=== PATIENT | female | born 1985 | race African-American/Black ===

== ENCOUNTER 2017-05-10 00:46 | Emergency (ER) | payer MEDICAID, SELFPAY ==
[2017-05-10 01:23] LABS: Bilirubin Negative (Negative); Blood, Urine Negative (Negative); Clarity CLOUDY (Clear); Glucose, Urine (Dipstick) Negative (Negative); Leukocyte Moderate (Negative); Nitrite Negative (Negative); Protein, Urine (Dipstick) Negative (Neg-Trace); Specific Gravity, Urine 1.026 (1.002-1.036)
[2017-05-10 01:24] LABS: Bacteria/HPF 2+ HPF (None Seen); Hyaline Casts/LPF 0-3 HYALINE CAST LPF (0-3 Hyaline); Pathc Cast-AUWi Flag 0.81 (0-2.49); RBC/HPF 0-3 HPF (0-3); Squamous Epithelial 0-3 HPF (0-3); WBC/HPF 21-50 HPF (0-3)
[2017-05-10 01:26] LABS: Pregnancy Test - Urine (BHCG) POSITIVE (Negative); Pregu Control Background? CLEAR/WHITE (CLR/WHITE); Pregu Control Bar Appear? YES (CONTROL BAR); Specific Gravity 1.026 (1.002-1.036); Yeast-AUWi Flag 784.1 (0-25.0)
[2017-05-10 01:35] LABS: Crystals/HPF 1+ AMORPH URATES HPF (Negative); Yeast-All Forms None Seen HPF (None Seen)
== END 2017-05-10 02:30 | disposition home or self-care (01) ==
LOC: ERS 00:46
DX: O99.711 Diseases of the skin and subcutaneous tissue complicating pregnancy, first trimester (principal); L73.9 Follicular disorder, unspecified; O23.41 Unspecified infection of urinary tract in pregnancy, first trimester; O99.341 Other mental disorders complicating pregnancy, first trimester; F31.9 Bipolar disorder, unspecified; F41.9 Anxiety disorder, unspecified; Z71.6 Tobacco abuse counseling; F17.210 Nicotine dependence, cigarettes, uncomplicated
CPT/HCPCS: 81003; 81015; 81025; 99406

== ENCOUNTER 2017-08-23 02:03 | Emergency (ER) | payer MEDICAID, OTHER ==
[2017-08-23] MEDS ORDERED: Acetaminophen 500 MG TAB ONE (03:54)
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
== END 2017-08-23 05:41 | disposition home or self-care (01) ==
LOC: ERS 02:03
DX: O9A.212 Injury, poisoning and certain other consequences of external causes complicating pregnancy, second trimester (principal); S09.90XA Unspecified injury of head, initial encounter; S00.12XA Contusion of left eyelid and periocular area, initial encounter; O99.512 Diseases of the respiratory system complicating pregnancy, second trimester; J45.909 Unspecified asthma, uncomplicated; D64.9 Anemia, unspecified; O99.282 Endocrine, nutritional and metabolic diseases complicating pregnancy, second trimester; E03.9 Hypothyroidism, unspecified; O99.342 Other mental disorders complicating pregnancy, second trimester; F41.9 Anxiety disorder, unspecified; F31.9 Bipolar disorder, unspecified; F20.9 Schizophrenia, unspecified; Z79.899 Other long term (current) drug therapy; Y04.0XXA Assault by unarmed brawl or fight, initial encounter; Z3A.20 20 weeks gestation of pregnancy
CPT/HCPCS: 70450; 71046; 72125

== ENCOUNTER 2017-11-26 16:16 | Day surgery (SDC) | payer OTHER ==
[2017-11-26 17:00] VITALS: BP 116/66; TEMP 98.9; BMI 33.6
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
[2017-11-26 18:30] LABS: Bilirubin Negative (Negative); Blood, Urine Negative (Negative); Clarity CLOUDY (Clear); Glucose, Urine (Dipstick) Negative (Negative); Leukocyte Moderate (Negative); Nitrite Negative (Negative); Protein, Urine (Dipstick) Negative (Neg-Trace); Specific Gravity, Urine 1.006 (1.002-1.036); pH, Urine 6.5 (5.0-9.0)
[2017-11-26 18:39] LABS: #Eosinphils 0.3 thou/uL (0.0-0.7); #Lymphocytes 1.1 thou/uL (1.20-3.40); #Monocytes 1.2 thou/uL (0.11-0.59); #Neutrophils 16.1 thou/uL (1.40-6.50); %Eosinophils 1.7 % (0.0-10.0); %Lymphocytes 5.9 % (21.0-51.0); %Monocytes 6.4 % (0.0-10.0); Hemoglobin 11.8 g/dL (12.0-16.0); Mean Corpuscular Hemoglobin 29.2 pg (27.0-31.0); Mean Corpuscular Volume 88.2 fL (78.0-98.0); Mean Platelet Volume 7.6 fL (7.4-10.4); Platelet Count 169 thou/uL (130-400); RBC Distribution Width 12.2 % (11.5-14.5); Red Blood Cell (RBC) Count 4.04 mill/uL (4.20-5.40); White Blood Cell (WBC) Count 18.7 thou/uL (4.8-10.8)
[2017-11-26 18:40] LABS: Medtox Reader # READER 4
[2017-11-26 18:41] LABS: Amphetamine Not Detected (NotDetected); Barbiturates Screen Not Detected (NotDetected); Benzodiazepine Screen Not Detected (NotDetected); Cocaine Metabolite Screen Not Detected (NotDetected); Medtox Control Line Valid? VALID (VALID); Methadone Not Detected (NotDetected); Methamphetamine Not Detected (NotDetected); Opiate Screen Not Detected (NotDetected); Oxycodone Screen Not Detected (NotDetected); Phencyclidine (PCP) Detected (NotDetected); THC/Cannabinoid Screen Not Detected (NotDetected); Tricyclic Screen Not Detected (NotDetected)
[2017-11-26] MEDS ORDERED: Lactated Ringer's 1,000 ML IV SCH (18:45)
[2017-11-26 18:56] LABS: ALT (SGPT) 17 U/L (8-55); AST (SGOT) 18 U/L (5-34); Albumin 3.1 g/dL (3.5-5.0); Alkaline Phosphatase 125 U/L (40-150); Anion Gap 12 mmol/L (10-20); BUN (Urea Nitrogen) 6 mg/dL (7.0-18.7); Bilirubin, Total 0.3 mg/dL (0.2-1.2); Calc. Creatinine Clearance 178 mL/min (70-130); Calcium 8.8 mg/dL (7.8-10.44); Carbon Dioxide 20 mmol/L (22-29); Chloride 107 mmol/L (98-107); Estimated GFR-MDRD Greater than 90; Globulin 2.9 g/dL (2.4-3.5); Glucose 87 mg/dL (70-105); Potassium 3.6 mmol/L (3.5-5.1); Sodium 135 mmol/L (136-145)
--- NOTE | 2017-11-26 19:43 | PDOC.EVN ---
Event Note - Event Note Event Note: Spoke with pt regarding low TSH and need to stop taking the synthroid. Pt thinks since TSH was low she needs the synthroid, it was explained in detail that she does not need to take synthroid and it was recommended she stop taking the medication for the remaining duration of this . PNC aware of issue and is monitoring. Pt agreeable to plan.
--- NOTE | 2017-11-26 20:13 | ULT ---
BIOPHYSICAL PROFILE: 11/26/17 HISTORY: 32-year-old female with decreased movement and limited care TECHNIQUE: Limited sonographic assessment of the gravid uterus obtained. FINDINGS: Single intrauterine gestation present with a vertex presentation. Placenta is located anteriorly with no evidence for previa or abruption. heart rate is 139 beats per minute, within normal limits. Amniotic fluid index is 9.7 cm. The linoleum floor layer reports a 2 out 2 score for tone, breathi ng, movement and amniotic fluid. IMPRESSION: Normal 8 out of 8 biophysical profile score. POS: [facility]
== END 2017-11-26 19:53 | disposition home or self-care (01) ==
LOC: L&D/OP 16:16
PROVIDERS: ATTEND Obstetrics & Gynecology
DX: O36.5930 Maternal care for other known or suspected poor fetal growth, third trimester, not applicable or unspecified (principal); O99.333 Smoking (tobacco) complicating pregnancy, third trimester; O99.323 Drug use complicating pregnancy, third trimester; F16.10 Hallucinogen abuse, uncomplicated; O09.33 Supervision of pregnancy with insufficient antenatal care, third trimester; Z3A.33 33 weeks gestation of pregnancy; Z79.899 Other long term (current) drug therapy; Z88.2 Allergy status to sulfonamides; Z88.8 Allergy status to other drugs, medicaments and biological substances; Z91.018 Allergy to other foods; Z91.19 Patient's noncompliance with other medical treatment and regimen
CPT/HCPCS: 36415; 76819; 80053; 80306; 81003; 84443; 85025; 87086; 87804; 99285

== ENCOUNTER 2017-12-23 06:08 | Day surgery (SDC) | payer OTHER ==
[2017-12-23 06:37] VITALS: BMI 34.9
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
== END 2017-12-23 07:15 | disposition left against medical advice (07) ==
LOC: L&D/OP 06:08
PROVIDERS: ATTEND Family Medicine
DX: O47.1 False labor at or after 37 completed weeks of gestation (principal); O99.513 Diseases of the respiratory system complicating pregnancy, third trimester; O99.343 Other mental disorders complicating pregnancy, third trimester; O99.333 Smoking (tobacco) complicating pregnancy, third trimester; F31.9 Bipolar disorder, unspecified; Z3A.37 37 weeks gestation of pregnancy; Z88.2 Allergy status to sulfonamides; Z88.8 Allergy status to other drugs, medicaments and biological substances
CPT/HCPCS: 99282

== ENCOUNTER 2017-12-24 14:28 | Inpatient (IN) | payer OTHER ==
[2017-12-24] MEDS ORDERED: Bupivacaine/Epinephrine 0.25% 30 ML VIAL ONE (15:00)
[2017-12-24] MEDS ORDERED: Promethazine HCl 25 MG/ML VIAL IM PRN (15:59)
[2017-12-24] MEDS ORDERED: HYDROcodone/Acetaminophen 5/325 mg Tablet PO PRN (15:59)
[2017-12-24] MEDS ORDERED: Methylergonovine 0.2 MG/ML VIAL IM PRN (15:59)
[2017-12-24] MEDS ORDERED: Diphenoxylate HCl/Atropine Tablet PO PRN (15:59)
[2017-12-24] MEDS ORDERED: Carboprost 250 MCG/ML AMP IM PRN (15:59)
[2017-12-24] MEDS ORDERED: Lidocaine 1% (PF) 30 ML VIAL SC PRN (15:59)
[2017-12-24] MEDS ORDERED: Ibuprofen 800 MG TAB PO PRN (15:59)
[2017-12-24] MEDS ORDERED: Acetaminophen/Codeine 30-300mg Tablet PO PRN (15:59)
[2017-12-24] MEDS ORDERED: NS / Oxytocin 40 units/1000ml 1,000 ML IV PRN (15:59)
[2017-12-24] MEDS ORDERED: Misoprostol 200 MCG TAB PR PRN (15:59)
[2017-12-24] MEDS ORDERED: Docusate 100 MG CAP PO PRN (15:59)
[2017-12-24] MEDS ORDERED: Ondansetron PF 4 MG/2 ML Vial IVP PRN (15:59)
[2017-12-24] MEDS ORDERED: NS w/ Oxytocin 10 units 500 ML IV SCH (16:00)
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
[2017-12-24 16:42] VITALS: BMI 35.4
[2017-12-24] MEDS ORDERED: Penicillin G Potassium 5 MILL.UNITS in Sodium Chloride 0.9% 100 ML IVPB SCH ×2 (17:15→21:00)
[2017-12-24 17:32] LABS: Bilirubin Negative (Negative); Blood, Urine Negative (Negative); Clarity CLOUDY (Clear); Glucose, Urine (Dipstick) Negative (Negative); Leukocyte Large (Negative); Nitrite Negative (Negative); Protein, Urine (Dipstick) Negative (Neg-Trace); Specific Gravity, Urine 1.007 (1.002-1.036); Urobilinogen 0.2 mg/dL (0.2-1.0)
[2017-12-24 17:34] LABS: Bacteria/HPF Rare-Few HPF (None Seen); Hyaline Casts/LPF 0-3 HYALINE CAST LPF (0-3 Hyaline); Pathc Cast-AUWi Flag 0.58 (0-2.49); RBC/HPF 0-3 HPF (0-3); WBC/HPF 21-50 HPF (0-3)
[2017-12-24 17:42] LABS: Amphetamine Not Detected (NotDetected); Barbiturates Screen Not Detected (NotDetected); Benzodiazepine Screen Not Detected (NotDetected); Cocaine Metabolite Screen Not Detected (NotDetected); Medtox Control Line Valid? VALID (VALID); Medtox Reader # READER 1; Methadone Not Detected (NotDetected); Methamphetamine Not Detected (NotDetected); Opiate Screen Not Detected (NotDetected); Oxycodone Screen Not Detected (NotDetected); Phencyclidine (PCP) Detected (NotDetected); THC/Cannabinoid Screen Not Detected (NotDetected); Tricyclic Screen Not Detected (NotDetected)
[2017-12-24] MEDS: Lactated Ringer's 1,000 ML IV SCH ×2 (18:15→20:41)
[2017-12-24 18:16] LABS: Hemoglobin 11.5 g/dL (12.0-16.0); Mean Corpuscular HGB CONC 32.8 g/dL (32.0-36.0); Mean Corpuscular Hemoglobin 29.3 pg (27.0-31.0); Mean Corpuscular Volume 89.2 fL (78.0-98.0); Platelet Count 174 thou/uL (130-400); RBC Distribution Width 12.7 % (11.5-14.5); Red Blood Cell (RBC) Count 3.92 mill/uL (4.20-5.40); White Blood Cell (WBC) Count 9.6 thou/uL (4.8-10.8)
[2017-12-24 18:56] LABS: Syphilis Antibody Nonreactive (Nonreactive); Syphilis Antibody Index 0.04 S/CO (<1.00 Non-Reactive)
[2017-12-24] MEDS ORDERED: Fentanyl 4 mcg/Bup 0.1% Cadd 100 ML ONE (19:06)
[2017-12-24 19:07] LABS: HBSAg Index 0.23 S/CO (0-0.99); HIV (1/2) Antibody/Antigen Non-Reactive (NonReactive); HIV 1/2 INDEX 0.11 S/CO (<1.00); Hep B Surf Ag Non-Reactive S/CO (NonReactive)
[2017-12-24] MEDS ORDERED: ePHEDrine/0.9% NaCl/PF SYRINGE 50 mg/10 ml SLOW IVP PRN (20:11)
[2017-12-24] MEDS ORDERED: Lactated Ringer's 500 ML IV PRN (20:11)
[2017-12-24] MEDS ORDERED: Eucerin (Mineral Oil/Petrolatum,White) 30 gm Jar TOP PRN (20:11)
[2017-12-24] MEDS ORDERED: Naloxone HCl 0.4 mg/ml Vial IVP PRN ×2 (20:11)
[2017-12-24] MEDS ORDERED: Communication Order-Pharmacy FS SCH (20:15)
[2017-12-24] MEDS ORDERED: Fentanyl 4 mcg/Bupivacaine 0.1% Cassette 100 ML EPIDURAL SCH (20:15)
--- NOTE | 2017-12-24 20:56 | PDOC.LDPN ---
Labor & Delivery Progress Note - Subjective Subjective: comfortable - Objective Vital signs reviewed and normal: yes General: NAD, resting Uterine fundus: non tender Dilation: 3 Effacement: 50% Station: -2 FHT: category 1 (140/mod/accels) [place] contractions every: 5-6min Plan: continue plan of care -: 32 y/o @ 37.6wga by LMP c/w 20w sono. TERI 01/08/18. 1. sIUP, term, multigravida -pitocin at 6, CTX q5-6min -SVE: /-2 -FHT: Cat 1 2. Possible GDM -accuchecks have been wnl 3. PCP abuse -UDS positive, plan to do mec & urine testing in baby -Case work consult placed 4. GBS unknown -start PCN ppx # Hx/o Delivery; Last Jackelyn injection at 31.6wga #. Polyhydramnios #. Placental insufficiency: S/D ration 4.0 in clinc and 2.2 at bedside here. Monitor FHT and labor closely. # Rubella NI: post immunization # RH (-):Rhogam given at 28.5 #Polysubstance abuse: PCP pos during , and smokes cigarettes currently. UDS pending. Case work consult placed as CPS is involved with other children. # Elevated BMI: 30 #. Hx/o hypothyroidism: was on levothyroxine and recommended she stop this and we do not plan to continue. # Asthma: uses inhalers PRN. No acute issues. #. Seizure disorder: Resume Keppra 500 TID. Questionable compliance #. Depression: also documented history of schizophrenia. neither of these are treated medically. #. Poor care #. 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 #. Chlamydia cervicitis: treated with Azithro in clinic today. <Kristy Heard - Last Filed: 12/24/17 20:52> Attending Addendum - Attending Addendum Date/Time: 12/24/17 7852 I personally evaluated the patient and discussed the management with Dr. Heard I agree with the History, Examination, Assessment and Plan documented above with any addition or exceptions noted below. Patient is high risk multigravida with fragmented care tested positive for PCP this afternoon. early induction of labor, appears to be reassuring without decelerations. GBS status is unknown. Given that she is multiparous, out of an abundance of caution, we will initiate antibiotic prophylaxis in the event of precipitous second stage. <Kurt Farooq - Last Filed: 12/24/17 21:38>
[2017-12-24] MEDS ORDERED: levETIRAcetam 500 MG TAB PO SCH (21:00)
[2017-12-24] MEDS ORDERED: Penicillin G 2.5 MILL.units 2.5 MILL.UNITS in Premix Bag 1 BAG IVPB SCH (21:00)
--- NOTE | 2017-12-24 21:54 | PDOC.LDPN ---
Labor & Delivery Progress Note - Subjective Subjective: comfortable - Objective Vital signs reviewed and normal: yes General: NAD, resting Uterine fundus: non tender Dilation: 5 Effacement: 50% Station: -3 FHT: category 1 (140/mod/accels) [place] contractions every: 2-3min Plan: continue plan of care -: 32 y/o @ 37.6wga by LMP c/w 20w sono. TERI 01/08/18. 1. sIUP, term, multigravida -pitocin at 10, CTX q5-6min -SVE: /-2 -FHT: Cat 1 2. Possible GDM -accuchecks have been wnl 3. PCP abuse -UDS positive, plan to do mec & urine testing in baby -Case work consult placed 4. GBS unknown -start PCN ppx # Hx/o Delivery; Last Jackelyn injection at 31.6wga #. Polyhydramnios #. Placental insufficiency: S/D ration 4.0 in clinc and 2.2 at bedside here. Monitor FHT and labor closely. # Rubella NI: post immunization # RH (-):Rhogam given at 28.5 #Polysubstance abuse: PCP pos during , and smokes cigarettes currently. UDS pending. Case work consult placed as CPS is involved with other children. # Elevated BMI: 30 #. Hx/o hypothyroidism: was on levothyroxine and recommended she stop this and we do not plan to continue. # Asthma: uses inhalers PRN. No acute issues. #. Seizure disorder: Resume Keppra 500 TID. Questionable compliance #. Depression: also documented history of schizophrenia. neither of these are treated medically. #. Poor care #. 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 #. Chlamydia cervicitis: treated with Azithro in clinic today.
[2017-12-24] MEDS: Misoprostol 100 MCG TAB VAG SCH (22:38)
--- NOTE | 2017-12-25 00:53 | PDOC.LDPN ---
Labor & Delivery Progress Note - Subjective Subjective: comfortable, vaginal pressure - Objective Vital signs reviewed and normal: yes General: NAD, resting Uterine fundus: non tender Dilation: 5 Effacement: 75% Station: -2 FHT: category 1 (130/mod/accels) [place] contractions every: 2-3min Plan: continue plan of care -: 32 y/o @ 37.6wga by LMP c/w 20w sono. TERI 01/08/18. 1. sIUP, term, multigravida -pitocin at 12, CTX q2-3min -SVE: /-2 -FHT: Cat 1 2. Possible GDM -accuchecks have been wnl 3. PCP abuse -UDS positive, plan to do mec & urine testing in baby -Case work consult placed 4. GBS unknown -start PCN ppx # Hx/o Delivery; Last [place] injection at 31.6wga #. Polyhydramnios #. Placental insufficiency: S/D ration 4.0 in clinc and 2.2 at bedside here. Monitor FHT and labor closely. # Rubella NI: post immunization # RH (-):Rhogam given at 28.5 #Polysubstance abuse: PCP pos during , and smokes cigarettes currently. UDS pending. Case work consult placed as CPS is involved with other children. # Elevated BMI: 30 #. Hx/o hypothyroidism: was on levothyroxine and recommended she stop this and we do not plan to continue. # Asthma: uses inhalers PRN. No acute issues. #. Seizure disorder: Resume Keppra 500 TID. Questionable compliance #. Depression: also documented history of schizophrenia. neither of these are treated medically. #. Poor care #. 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 #. Chlamydia cervicitis: treated with Azithro in clinic today.
[2017-12-25] MEDS: Penicillin G 2.5 MILL.units 2.5 MILL.UNITS in Premix Bag 1 BAG IVPB SCH ×2 (01:04→09:31)
[2017-12-25] MEDS ORDERED: NS / Oxytocin 40 units/1000ml 1,000 ML ONE (02:13)
[2017-12-25] MEDS ORDERED: Lidocaine 1% (PF) 30 ML VIAL ONE (02:13)
--- NOTE | 2017-12-25 03:20 | PDOC.OPDEL ---
OB Operative/Delivery Note Delivery Dr/Surgeon: Dr. Heard, Dr. Braga, Dr. Farooq Pre-Delivery Diagnosis: medically indicated induction Weeks gestation: 37 (37.6) Anesthesia: epidural - Additional Findings/Plan Placenta delivered: spontaneous Repaired Obstetrical Laceration: none Compilations/Other Findings: Vaginal Delivery Delivering Physician: Kristy Heard MD; Erwin Braga MD Attending: Kurt Farooq MD Procedure: Spontaneous Vaginal Delivery Anesthesia: epidural EBL: 350 ml Pre-op Diagnosis: 1. Term intrauterine in labor 2. Uteroplacenta insufficiency 2/2 S/D 2.2 3. Hx of PTL 4. Polysubstance abuse 5. Asthma 6. Seizure disorder 7. Polyhydramnios during 8. Rubella Non immune 9. Rh- (s/p Rhogam @28.5wks) Post-op Diagnosis: 1. Term intrauterine , delivered 2-9. same as above Indications: A 32y/o female presents for medically indicated IOL due to poor followup, polysubstance abuse and S/D ratio 2.2 Delivery Note: This is 32 yo F now P3184 @ 37.7 wks who delivered a viable F infant at on 12/25 at 0542. Following an uneventful antepartum course, a vigorous F was delivered over an intact perineum in the PAIGE position. Anterior Shoulder and then remainder of the body delivered. Nuchal cord x1, reduced. The head was held down and mouth and nares were bulb suctioned. Cord clamped and cut and cord blood collected. Placenta delivered intact in the [place] presentation with a 3 vessel cord noted. Fundal massage was performed and the fundus was firm. The cervix and vagina were inspected and a superficial cervical laceration at 1 o'clock position was found to be hemostatic thus no repair warranted. went to nursery in good condition for routine care. Apgars were 8/9 at 1 & 5 minutes, respectively. Patient tolerated delivery well and went to after routine recovery/care. Post delivery plan: routine recovery
[2017-12-25] MEDS ORDERED: Ondansetron PF 4 MG/2 ML Vial IVP PRN (06:15)
[2017-12-25] MEDS ORDERED: Bisacodyl 10 MG SUPP PR PRN (06:15)
[2017-12-25] MEDS ORDERED: NS / Oxytocin 40 units/1000ml 1,000 ML IV SCH (06:15)
[2017-12-25] MEDS ORDERED: Milk Of Magnesia 30 ML UDCUP PO PRN (06:15)
[2017-12-25] MEDS ORDERED: Promethazine HCl 25 MG/ML VIAL IM PRN (06:15)
[2017-12-25] MEDS ORDERED: Lanolin Ointment 7 GM TUBE TOP PRN (06:15)
[2017-12-25] MEDS ORDERED: Adacel (T-DAP) 0.5 ML VIAL IM ONE (06:15)
[2017-12-25] MEDS: Acetaminophen 500 MG TAB PO SCH (07:18)
[2017-12-25] MEDS: Ferrous Sulfate 325 MG TAB PO SCH ×2 (08:10→17:14)
[2017-12-25] MEDS: Misoprostol 100 MCG TAB VAG SCH ×2 (09:30→09:31)
[2017-12-25] MEDS: Ibuprofen 800 MG TAB PO SCH ×2 (09:32→17:05)
[2017-12-25] MEDS: Levothyroxine Sodium 25 MCG TAB PO SCH (09:32)
[2017-12-25] MEDS: Docusate Calcium (SURFAK) 240 MG CAP PO SCH ×2 (09:32→21:27)
[2017-12-25] MEDS: Prenatal Vitamin 1 TAB PO SCH (09:32)
[2017-12-25] MEDS: levETIRAcetam 500 MG TAB PO SCH ×3 (09:33→21:26)
[2017-12-25] MEDS ORDERED: Measles/Mumps/Rubella 10 MCG/0.5 ML VIAL SC ONE (14:30)
--- NOTE | 2017-12-25 16:12 | PDOC.EVN ---
Event Note - Event Note Event Note: Attending Note I Supervised Drs. Heard and Omi and was present in the room. refer to Dr. Heard's delivery note for complete details. Uncomplicated spontaneous vaginal delivery following a brief second stage of labor. Atraumatic, nuchal cord easily reduced. with Apgars of 8 and 9 at one and 5 min. Placenta delivered spontaneously and intact Close inspection revealed no significant lacerations requiring repair. patient tolerated the delivery well now resting in stable condition. Kurt Farooq MD
[2017-12-26] MEDS: Ibuprofen 800 MG TAB PO SCH ×3 (00:11→16:29)
[2017-12-26 05:48] LABS: Hemoglobin 10.8 g/dL (12.0-16.0); Mean Corpuscular HGB CONC 32.2 g/dL (32.0-36.0); Mean Corpuscular Hemoglobin 28.8 pg (27.0-31.0); Mean Corpuscular Volume 89.4 fL (78.0-98.0); Mean Platelet Volume 8.2 fL (7.4-10.4); Platelet Count 155 thou/uL (130-400); RBC Distribution Width 12.7 % (11.5-14.5); Red Blood Cell (RBC) Count 3.76 mill/uL (4.20-5.40); White Blood Cell (WBC) Count 10.3 thou/uL (4.8-10.8)
[2017-12-26] MEDS: Levothyroxine Sodium 25 MCG TAB PO SCH (06:39)
--- NOTE | 2017-12-26 08:15 | PDOC.PP ---
Post Progress Note Post Day #: 1 PO intake tolerated: yes Flatus: yes Ambulation: yes Vital Signs (12 hours) Temp Pulse Resp BP 12/26/17 00:10 98.0 F 71 20 121/78 Weight Weight 90.718 kg - Physical Examination General: NAD Cardiovascular: no m/r/g, RRR Respiratory: clear to auscultation bilaterally Abdominal: lochia, no distention, appropriately TTP Fundus firm & at: umbilicus Skin: CS incision dry & intact, no rash Neurological: no gross focal deficits Psychiatric: A&Ox3, normal affect Result Diagrams: 12/26/17 05:20 Additional Labs: Post Labs Blood Type B NEGATIVE 12/24/17 18:11 Hep Bs Antigen Non-Reactive S/CO (NonReactive) 12/24/17 18:11 (1) Asthma Code(s): J45.909 - UNSPECIFIED ASTHMA, UNCOMPLICATED Status: Acute (2) Positive urine drug screen Code(s): R82.5 - ELEVATED URINE LEVELS OF DRUG/MEDS/BIOL SUBST Status: Acute (3) Seizure disorder during in third trimester Code(s): O99.353 - DISEASES OF THE NERVOUS SYS COMP , THIRD TRIMESTER; G40.909 - EPILEPSY, UNSP, NOT INTRACTABLE, WITHOUT STATUS EPILEPTICUS Status: Acute - Assessment/Plan 32 y/o s/p on 12/25/2017 @ 0252 1. Day #1 - Meeting all pp milestones - H&H 10.8/33.6 - Ibuprofen for pain control 2. Rubella NI - MMR today 3. Rh neg - Rhogam given at 28.5w - 2nd dose given on 12/25 4. Possible GDM: 1hr GTT was 156, but she did not f/u for her 3hr - Recommend 6 week pp OGTT 5. Polysubstance abuse: PCP pos during , and smokes cigarettes currently. UDS + PCP which patient reports was 1 slip-up. Case management consult placed as CPS is involved with other children. 7. Hx/o hypothyroidism: was on levothyroxine and recommended she stop this - Recommend f/u outpatient 11. Asthma: uses inhalers PRN. No acute issues. 12. Seizure disorder: Keppra 500 TID. Questionable compliance but restarted this hospitalization 13. Depression: also documented history of schizophrenia. neither of these are treated medically - Discussed recommend f/u with [facility] upon discharge, she states she has had good experience there in the past 14. Poor care 15. 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 16. Chlamydia cervicitis: treated with Azithro in clinic - Needs KIMBERLEY Likely discharge tomorrow on PPD #2
[2017-12-26] MEDS: Prenatal Vitamin 1 TAB PO SCH (09:29)
[2017-12-26] MEDS: Docusate Calcium (SURFAK) 240 MG CAP PO SCH ×2 (09:29→21:46)
[2017-12-26] MEDS: Ferrous Sulfate 325 MG TAB PO SCH ×2 (09:29→16:29)
[2017-12-26] MEDS: levETIRAcetam 500 MG TAB PO SCH ×3 (10:03→21:45)
[2017-12-26] MEDS ORDERED: Acetaminophen 325 MG TAB PO PRN (18:20)
[2017-12-26] MEDS: Acetaminophen 500 MG TAB PO SCH (21:48)
[2017-12-27] MEDS: Ibuprofen 800 MG TAB PO SCH ×2 (02:08→08:08)
--- NOTE | 2017-12-27 06:10 | PDOC.PP ---
Post Progress Note Post Day #: 2 Subjective: Reports feeling well. Denies pain. Reports minimal lochia. Ambulating, voiding and stooling. Tolerating PO. PO intake tolerated: yes Flatus: yes Ambulation: yes Vital Signs (12 hours) Temp Pulse Resp BP 12/26/17 20:00 98.3 F 80 17 129/65 Weight Weight 90.718 kg - Physical Examination General: NAD Cardiovascular: no m/r/g, RRR Respiratory: clear to auscultation bilaterally, non-labored breathing Abdominal: + bowel sounds, lochia Deviation from normal: fundus palpable below umbilicus Neurological: no gross focal deficits Psychiatric: A&Ox3, normal affect Result Diagrams: 12/26/17 05:20 Additional Labs: Post Labs Blood Type B NEGATIVE 12/24/17 18:11 Hep Bs Antigen Non-Reactive S/CO (NonReactive) 12/24/17 18:11 (1) Normal course Code(s): Z39.2 - ENCOUNTER FOR ROUTINE FOLLOW-UP Status: Acute - Assessment/Plan 32 y/o s/p on 12/25/2017 @ 0252 Day #2 - Meeting all pp milestones - H&H 10.8/33.6 - Ibuprofen for pain control Rubella NI - s/p MMR 12/26 Rh neg - Rhogam given at 28.5w - 2nd dose given on 12/25 Possible GDM - 1hr GTT was 156, but she did not f/u for her 3hr - Recommend 6 week pp OGTT Polysubstance abuse - PCP pos during , and smokes cigarettes currently. UDS + PCP which patient reports was 1 slip-up - Baby PCP + by drug screen - Case management consult placed as CPS is involved with other children Hx/o hypothyroidism: was on levothyroxine and recommended she stop this - Recommend f/u outpatient Asthma, stable - Uses inhalers PRN Seizure disorder - Continue Keppra 500 TID - Questionable compliance but restarted this hospitalization Depression - Documented history of schizophrenia - Neither of these are treated medically - Discussed recommend f/u with [facility] upon discharge, she states she has had good experience there in the past Poor care 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 - 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 Chlamydia cervicitis - Treated with Azithro in clinic - Needs KIMBERLEY Likely discharge today <Macey Bravo - Last Filed: 12/27/17 10:07> Vital Signs (12 hours) Temp Pulse Resp BP Pulse Ox 12/27/17 07:55 98.2 F 65 18 133/81 99 12/27/17 06:00 98.5 F 70 18 121/60 Weight Weight 90.718 kg Result Diagrams: 12/26/17 05:20 Additional Labs: Post Labs Blood Type B NEGATIVE 12/24/17 18:11 Hep Bs Antigen Non-Reactive S/CO (NonReactive) 12/24/17 18:11 <Kurt Farooq - Last Filed: 12/27/17 17:16> Attending Addendum - Attending Addendum Date/Time: 12/27/17 1710 I personally evaluated the patient and discussed the management with Dr. Bravo I agree with the History, Examination, Assessment and Plan documented above with any addition or exceptions noted below. Significant social chaos woven into the fabric of her life. CPS and MHMR engaged. HX STD, needs KIMBERLEY, refused in hospital. Needs reliable contraception. BTL, Nexplanon or Depo probably best options. Hopefully will make followup though I am not totally optimistic. <Kurt Farooq - Last Filed: 12/27/17 17:16>
[2017-12-27] MEDS: Levothyroxine Sodium 25 MCG TAB PO SCH (07:23)
[2017-12-27] MEDS: Ferrous Sulfate 325 MG TAB PO SCH (08:07)
[2017-12-27] MEDS: levETIRAcetam 500 MG TAB PO SCH (08:08)
[2017-12-27] MEDS: Prenatal Vitamin 1 TAB PO SCH (08:08)
[2017-12-27] MEDS: Docusate Calcium (SURFAK) 240 MG CAP PO SCH (08:08)
[2017-12-27 09:34] VITALS: BP 133/81; TEMP 98.2
== END 2017-12-27 14:25 | disposition home or self-care (01) | DRG 806 ==
LOC: L&D/OP 14:28 → L&D 14:29 → EDSTATUS 14:29 → 3SW 12-25 06:03
PROVIDERS: ADMIT Family Medicine; ATTEND Family Medicine
PROC: 10E0XZZ Delivery of Products of Conception, External Approach (ICD-10-PCS; principal; 2017-12-25)
PROC: 3E033VJ Introduction of Other Hormone into Peripheral Vein, Percutaneous Approach (ICD-10-PCS; 2017-12-25)
PROC: 3E0234Z Introduction of Serum, Toxoid and Vaccine into Muscle, Percutaneous Approach (ICD-10-PCS; 2017-12-25)
DX: O40.3XX0 Polyhydramnios, third trimester, not applicable or unspecified (principal); O98.32 Other infections with a predominantly sexual mode of transmission complicating childbirth; Z37.0 Single live birth; O99.324 Drug use complicating childbirth; O99.354 Diseases of the nervous system complicating childbirth; O71.3 Obstetric laceration of cervix; O24.429 Gestational diabetes mellitus in childbirth, unspecified control; A56.09 Other chlamydial infection of lower genitourinary tract; O99.284 Endocrine, nutritional and metabolic diseases complicating childbirth; E03.9 Hypothyroidism, unspecified; F19.10 Other psychoactive substance abuse, uncomplicated; O99.334 Smoking (tobacco) complicating childbirth; F17.210 Nicotine dependence, cigarettes, uncomplicated; Z3A.37 37 weeks gestation of pregnancy; G40.909 Epilepsy, unspecified, not intractable, without status epilepticus; O99.344 Other mental disorders complicating childbirth; F32.9 Major depressive disorder, single episode, unspecified; J45.20 Mild intermittent asthma, uncomplicated; O36.5130 Maternal care for known or suspected placental insufficiency, third trimester, not applicable or unspecified; O26.893 Other specified pregnancy related conditions, third trimester; O69.81X0 Labor and delivery complicated by cord around neck, without compression, not applicable or unspecified; Z67.21 Type B blood, Rh negative
CPT/HCPCS: 36415; 36416; 51702; 76815; 80306; 81001; 85027; 85461; 86780; 86850; 86870; 86900; 86901; 87340; 87389; 88307; 90384; 96372; J2001; J2540; J7050

== ENCOUNTER 2018-02-24 00:55 | Emergency (ER) | payer OTHER ==
[2018-02-24] MEDS ORDERED: Ondansetron PF 4 MG/2 ML Vial ONE (01:24)
[2018-02-24] MEDS ORDERED: Ketorolac Tromethamine 30 MG/ML VIAL ONE (02:16)
== END 2018-02-24 02:44 | disposition home or self-care (01) ==
LOC: ERS 00:55
DX: B34.9 Viral infection, unspecified (principal); J45.909 Unspecified asthma, uncomplicated; E03.9 Hypothyroidism, unspecified; D64.9 Anemia, unspecified; F31.9 Bipolar disorder, unspecified; F41.9 Anxiety disorder, unspecified; F20.9 Schizophrenia, unspecified
CPT/HCPCS: 87804; 96361; 96374; 96375; J1885; J2405

== ENCOUNTER 2018-03-14 17:31 | Observation (INO) | payer OTHER ==
[~2018-03-14 17:31] MED LIST: ISOVUE-370 76%-LOCM 1 ML ONE
[2018-03-14 17:52] LABS: Hemoglobin 14.6 g/dL (12.0-16.0); Mean Corpuscular HGB CONC 32.1 g/dL (32.0-36.0); Mean Corpuscular Hemoglobin 28.9 pg (27.0-31.0); Mean Corpuscular Volume 89.9 fL (78.0-98.0); Mean Platelet Volume 7.9 fL (7.4-10.4); Platelet Count 195 thou/uL (130-400); RBC Distribution Width 11.7 % (11.5-14.5); Red Blood Cell (RBC) Count 5.05 mill/uL (4.20-5.40); White Blood Cell (WBC) Count 4.3 thou/uL (4.8-10.8)
[2018-03-14 17:56] LABS: INR-International Normal Ratio 1.1; PTT 25.5 SEC (22.9-36.1); Prothrombin Time 14.2 SEC (12.0-14.7)
[2018-03-14 18:03] LABS: ALT (SGPT) 22 U/L (8-55); AST (SGOT) 22 U/L (5-34); Albumin 4.1 g/dL (3.5-5.0); Alkaline Phosphatase 55 U/L (40-150); Anion Gap 15 mmol/L (10-20); BUN (Urea Nitrogen) 17 mg/dL (7.0-18.7); Bilirubin, Total 0.6 mg/dL (0.2-1.2); CK (CPK) 87 U/L (29-168); Calc. Creatinine Clearance 0 mL/min (70-130); Calcium 9.5 mg/dL (7.8-10.44); Carbon Dioxide 20 mmol/L (22-29); Chloride 107 mmol/L (98-107); Estimated GFR-MDRD 68; Globulin 2.7 g/dL (2.4-3.5); Glucose 87 mg/dL (70-105); Potassium 3.9 mmol/L (3.5-5.1); Protein, Total 6.8 g/dL (6.0-8.3); Sodium 138 mmol/L (136-145)
[2018-03-14 18:05] LABS: Band 1 % (5-11); Lymphocytes 44 % (21-51); MDiff Complete? YES; Monocytes 4 % (0-10); Neutrophil 51 % (42-75); Platelet Morphology Comment Appears Adequate
[2018-03-14 18:24] LABS: BHCG - Serum Negative (NEGATIVE); Pregs Control Background? CLEAR/WHITE (CLR/WHITE); Pregs Control Bar Appear? YES (CONTROL BAR)
[2018-03-14 18:27] LABS: Acetaminophen Less than 6.0 mcg/mL (10.0-30.0); Alcohol Less than 10 mg/dL (Less than 10); Salicylate Less than 8.0 mg/dL (15.0-30.0)
[2018-03-14] MEDS ORDERED: Aspirin Chewable 81 MG TAB ONE (18:34)
[2018-03-14 18:40] LABS: Bilirubin Small (Negative); Blood, Urine Negative (Negative); Clarity CLEAR (Clear); Glucose, Urine (Dipstick) Negative (Negative); Leukocyte Trace (Negative); Nitrite Negative (Negative); Protein, Urine (Dipstick) 100 mg/dL (Neg-Trace); Specific Gravity, Urine 1.034 (1.002-1.036); pH, Urine 5.5 (5.0-9.0)
[2018-03-14 18:46] LABS: Bacteria/HPF None Seen HPF (None Seen); Hyaline Casts/LPF 7-10 HYALINE CAST LPF (0-3 Hyaline); Pathc Cast-AUWi Flag 1.88 (0-2.49); RBC/HPF 0-3 HPF (0-3); WBC/HPF 0-3 HPF (0-3)
[2018-03-14 18:49] LABS: Renal Epithelial None Seen HPF (0-3); Transitional Epithelial NONE SEEN HPF (0-3)
[2018-03-14 18:54] LABS: Cocaine Metabolite Screen Detected (NotDetected); Medtox Reader # READER 1; Methamphetamine Detected (NotDetected); Phencyclidine (PCP) Detected (NotDetected); THC/Cannabinoid Screen Detected (NotDetected)
[2018-03-14 18:55] LABS: Amphetamine Detected (NotDetected); Barbiturates Screen Not Detected (NotDetected); Benzodiazepine Screen Not Detected (NotDetected); Medtox Control Line Valid? VALID (VALID); Methadone Not Detected (NotDetected); Opiate Screen Not Detected (NotDetected); Oxycodone Screen Not Detected (NotDetected); Tricyclic Screen Not Detected (NotDetected)
--- NOTE | 2018-03-14 19:06 | CT ---
HEAD CT WITHOUT CONTRAST 03/14/18 COMPARISON: 08/23/17. HISTORY: Stroke alert, facial droop since 11 p.m., recent attempting hanging as well. TECHNIQUE: Axial CT imaging is obtained at 5 mm intervals from vertex through skull base without contrast. FINDINGS: The imaged paranasal sinuses/mastoid air cells are well aerated. There are mild polypoid mucosal thickening of right maxillary sinus. No displaced calvarial fracture , intracranial hemorrhage, midline shift, or mass effect. IMPRESSION: No acute findings. Results were called to Dr. Cline at 6 p.m., . Code CR POS: [facility]
--- NOTE | 2018-03-14 19:13 | CT ---
CT ANGIOGRAM HEAD AND NECK: 03/14/2018 HISTORY: Recent attempted hanging. Left-sided facial droop since 11:00 p.m. on 03/13/2018. COMPARISON: None. TECHNIQUE: Axial CT imaging at 1.25 mm intervals, from the vertex through the lung apices, with IV contrast. Co ellie and sagittal 3D reformatted imaging obtained. FINDINGS: The imaged lung apices appear unremarkable. The retroantral and parapharyngeal fat appear clear bilaterally. The parotid glands and the submandi bular glands appear unremarkable bilaterally. The region of the thyroid gland, the cricoid cartilage, the thyroid cartilage, the hyoid bone, the ep iglottis, and the preepiglottic fat, and the tonsillar pillars appear grossly unremarkable. The origin of the innominate artery, the right subclavian artery, the right common carotid artery, th e left common carotid artery, the left subclavian artery, and the bilateral vertebral arteries appear unremarkable. The right vertebral artery is dominant. Bilateral vertebral arteries are patent, wit h a diminutive left vertebral artery noted. On the basis of NASCET criteria, there is no hemodynamically significant stenosis involving the inter nal or common carotid artery on either side. The extracranial internal carotid artery appears intact bilaterally. There is no lymphadenopathy appreciated within the neck. The basilar artery and its branches are patent, with no saccular aneurysm, high-grade stenosis, or va scular occlusion involving the anterior circulation. The A1 segment is patent bilaterally. Distal CALVIN branches appear unremarkable. The M1 segment appears patent bilaterally. The MCA branches appear within normal limits. The craniocervical junction, the atlantoaxial interspace, the dens, and the cervicothoracic junction appear intact. There is no prevertebral soft tissue swelling. There is no displaced fracture or stephanie dence of dislocation. No anterolisthesis or retrolisthesis. IMPRESSION: Unremarkable CT angiogram of the head and neck. Results called to Dr. Cline at 6:12 p.m. on 03/14/2018. CODE CR POS: [facility]
--- NOTE | 2018-03-14 19:18 | RAD ---
FRONTAL RADIOGRAPH CHEST: 03/14/2018 HISTORY: Injury. Trauma. Pain. COMPARISON: 09/16/2015 FINDINGS: Supine imaging provided, limiting assessment for pneumothorax and pleural fluid. The cardiac silhoue tte is stable and grossly unremarkable. The lungs appears clear. IMPRESSION: No acute findings. POS: [facility]
--- NOTE | 2018-03-14 19:57 | PDOC.FPRHP ---
- History of Present Illness Chief Complaint: stroke like symptoms History of Present Illness: 32yo F with extensive psychiatric history presents with acute onset of complete R sided full body and face numbness and paralysis that , ear ringing, facial droop, and slurred speech that started last night when pt was in an argument with her boyfriend. Pt states this has happened to her in the past years with her ex and that it resolved when her emotions calmed down. Pt states that she has been under a lot of stress as her brother committed suicide yesterday and yesterday was also the " anniversary" of her mother. After onset of symptoms pt got bedsheet and went to bathroom to hang herself but was stopped by the man she is sharing a home with and EMS was called. NOTE: pt was mcguire positive on ROS though many sx were clearly not present. Additionally as stated in exam below pt has many findings on neuro exam however she was witnessed using R extremeties by several ER staff. ED Course: ASA, CTA, CT head, Pt was witnessed using her RUE and RLE - Allergies/Adverse Reactions Allergies Allergy/AdvReac Type Severity Reaction Status Date / Time Sulfa (Sulfonamide Allergy Severe Anaphylaxis Verified 09/16/15 10:28 Antibiotics) celery Allergy Intermediate Hives Verified 09/16/15 10:28 guaifenesin [From Robitussin] Allergy Intermediate Hives Verified 09/16/15 10:28 metoclopramide HCl Allergy Intermediate Anxiety Verified 09/16/15 10:28 [From Reglan] coconut oil Allergy Anaphylaxis Verified 09/16/15 10:28 mushroom Allergy Anaphylaxis Verified 09/16/15 10:28 - Home Medications Medication Instructions Recorded Confirmed Type Vits96/Iron Fum/Folic 1 tablet PO DAILY 09/16/15 12/24/17 History [ Tablet] levETIRAcetam [Keppra] 500 mg PO TID 09/16/15 03/14/18 History Fluticasone Propionate [Flovent 110 mcg INH TID 12/24/17 03/14/18 History HFA 110 mcg] Levothyroxine Sodium [Levo-T] 25 mcg PO DAILY 12/24/17 03/14/18 History - History PMHx:Depression, bipolar 2, schizophrenia, asthma, migraine, hypothyroidism, seizure disorder PSHx: R leg surgery FHx: depression (brother commited suicide) Social: active smoker (30 pack years), etoh last use wednesday- social drinker but tends to binge, admits to many drugs including PCP, ecstasy, MJ - Review of Systems ROS unobtainable: other (NOTE: pt was mcguire positive on ROS though many sx were clearly not present) General: reports: fever/chills, fatigue Eyes: denies: eye pain, vision changes ENT: denies: nasal congestion Respiratory: reports: cough, shortness of breath Cardiovascular: reports: chest pain. denies: edema Gastrointestinal: reports: nausea, abdominal pain. denies: vomiting Genitourinary: reports: dysuria, polyuria Skin: reports: rashes, lesions Musculoskeletal: reports: pain, tenderness Neurological: reports: syncope, seizure Psychological: reports: anxiety, depression - Vital signs BP: [125/81] HR: [85] RR: [16] Tmax: [98.2] Pox: [98]% on [ra] Wt: [80] - Physical Exam Constitutional: awake, alert and oriented, well developed, other (in moderate emotional distress) HEENT: normocephalic and atraumatic, EOMI, grossly normal vision, grossly normal hearing Neck: supple, trachea midline Chest: no-tender to palpation Heart: RRR, normal S1/S2 Lungs: CTAB, no respiratory distress Abdomen: soft, non-tender Musculoskeletal: normal structure, normal tone Neurological: DTRs 2+ (bilaterally) -Neurological: No sensation on the R side of entire body and head/face. 0/5 strength demonstrated in RUE and RLE. R sided facial droop noted though it was not present during the entire exam. Of note the pt was seen using the R side of her body by many ED staff during stay. Skin: no rash/lesions, good turgor Heme/Lymphatic: no unusual bruising or bleeding, no purpura -Psychiatric: poor insight/judgment, sad mood with congruent affect FMR H&P: Results - Labs Result Diagrams: 03/14/18 17:35 03/15/18 03:31 Lab results: WBC 4.3 thou/uL (4.8-10.8) L 03/14/18 17:35 Hgb 14.6 g/dL (12.0-16.0) 03/14/18 17:35 Hct 45.4 % (36.0-47.0) 03/14/18 17:35 MCV 89.9 fL (78.0-98.0) 03/14/18 17:35 Plt Count 195 thou/uL (130-400) 03/14/18 17:35 Band Neuts % (Manual) 1 % (5-11) L 03/14/18 17:35 Sodium 138 mmol/L (136-145) 03/14/18 17:35 Potassium 3.9 mmol/L (3.5-5.1) 03/14/18 17:35 Chloride 107 mmol/L (98-107) 03/14/18 17:35 Carbon Dioxide 20 mmol/L (22-29) L 03/14/18 17:35 BUN 17 mg/dL (7.0-18.7) 03/14/18 17:35 Creatinine 1.13 mg/dL (0.6-1.1) H 03/14/18 17:35 Glucose 87 mg/dL (70-105) 03/14/18 17:35 Lactic Acid 1.2 mmol/L (0.5-2.2) 03/14/18 17:49 Calcium 9.5 mg/dL (7.8-10.44) 03/14/18 17:35 Total Bilirubin 0.6 mg/dL (0.2-1.2) 03/14/18 17:35 AST 22 U/L (5-34) 03/14/18 17:35 ALT 22 U/L (8-55) 03/14/18 17:35 Alkaline Phosphatase 55 U/L (40-150) 03/14/18 17:35 Creatine Kinase 87 U/L (29-168) 03/14/18 17:35 Serum Total Protein 6.8 g/dL (6.0-8.3) 03/14/18 17:35 Albumin 4.1 g/dL (3.5-5.0) 03/14/18 17:35 Urine Ketones Trace mg/dL (Negative) H 03/14/18 18:19 Urine Blood Negative (Negative) 03/14/18 18:19 Urine Nitrite Negative (Negative) 03/14/18 18:19 Ur Leukocyte Esterase Trace (Negative) H 03/14/18 18:19 Urine RBC 0-3 HPF (0-3) 03/14/18 18:19 Urine WBC 0-3 HPF (0-3) 03/14/18 18:19 Ur Squamous Epith Cells 4-6 HPF (0-3) H 03/14/18 18:19 Urine Bacteria None Seen HPF (None Seen) 03/14/18 18:19 FMR H&P: A/P - Problem List (1) Conversion disorder Current Visit: Yes Status: Acute Code(s): F44.9 - DISSOCIATIVE AND CONVERSION DISORDER, UNSPECIFIED (2) Depression Current Visit: Yes Status: Chronic Code(s): F32.9 - MAJOR DEPRESSIVE DISORDER, SINGLE EPISODE, UNSPECIFIED (3) Bipolar 2 disorder Current Visit: Yes Status: Chronic Code(s): F31.81 - BIPOLAR II DISORDER (4) Schizophrenia Current Visit: Yes Status: Chronic Code(s): F20.9 - SCHIZOPHRENIA, UNSPECIFIED (5) Hypothyroid Current Visit: Yes Status: Chronic Code(s): E03.9 - HYPOTHYROIDISM, UNSPECIFIED (6) Asthma Current Visit: No Status: Chronic Code(s): J45.909 - UNSPECIFIED ASTHMA, UNCOMPLICATED - Plan Conversion Disorder 2/2 untreated depression A- Considering negative stroke workup done in ER including normal CT brain and normal CTA head and neck, in the context of pts home stressors and low risk for stroke there is low suspicion for stroke at this time. Likely conversion disorder. Pt's highest NIH score was 15, however, multiple ER staff witnessed the patient moving the right side of her body. Pt did report similar episode years ago that was also caused by emotional distress and resolved with calmed mental status. P- admit pt to stroke floor for continued observation - neuro checks - consult MHMR in AM - start lexapro Depression with suicide attempt A- Pt no longer having SI/HI/AVH, not on any medications currently for depression P- start lexapro -Sitter in room, if possible. -MHMR consult in AM. Polysubstance abuse -UDS grossly positive. 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 Seizure disorder -home Keppra Schizophrenia -MHMR consult in AM Bipolar 2 -MHMR consult in AM Asthma -home fluticasone hypothyroidism -home levothyroxin FULL code disposition: observation, expecting less than 2 midnights FMR H&P: Upper Level - Pertinent history 32 yo AAF with PMH of depression, polysubstance abuse, and difficult social situations presenting to ER after a failed suicide attempt and complaints of hemiparesis. Pt notes she has been under a lot of stress recently with a brother committing suicide, her mother dying in group home, her father being treated for cancer, and altercations with her sister. She states that she has been feeling right sided weakness since this morning along with complaints of DWYER , CP, nausea, hemoptysis, vaginal bleeding, rash and depression (see manager internet retails sales note for full ROS). She endorses illicit drug use, specifically marijuana, MDMA , and PCP. She also endorses heavy tobacco use. Earlier today, pt had been witnessed saying she was going to kill herself. She was noted to get a sheet from the closet, lock herself in the bathroom, and attempt to hang herself from the shower [place]. Pt states she does not remember much from the event. She was found and cut down by male who was at the home and EMS was called. Pt denies current SI and states she can not leave her children alone. - Pertinent findings VSS Gen: pleasant in NAD CV: RRR, no murmurs Resp: unlabored, CTAB Neuro: right upper and lower ext 1/5, however witnessed patient moving both extremities during interview. no other focal deficits. - Plan Date/Time: 03/14/181956 I, Petar Leigh MD PGY3, have evaluated this patient and agree with findings/ plan as outlined by manager internet retails sales resident. Pertinent changes/additions are listed here. 1. Likely Conversion Disorder 2/2 untreated depression -Urgent ER evaluation for stroke was completed and pt had normal CT brain and normal CTA head and neck. Pt's highest NIH score was 15, however, multiple ER staff witnessed the patient moving the right side of her body. -Urine was collected via [place]den and pt flexed legs against nursing staff. -Suspicion for acute CVA is low and pt's likely diagnosis is conversion disorder with pt's significant home stressors and psychiatric history. -Will admit pt to stroke floor for continued observation and neuro checks. -Start pt on Lexapro daily, as she is open to starting treatment for depression. 2. Suicide attempt -Sitter in room, if possible. -MR consult in AM. -Pt states she is no longer suicidal. 3. Polysubstance abuse -UDS grossly positive. 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 FULL code disposition: Admit to stroke observation for anticipated length of stay less than two midnights, pending clinical course. Addendum - Attending - Attending Attestation Date/Time: 03/14/181999 I personally evaluated the patient and discussed the management with Dr. Wick and Dr. Leigh I agree with the History, Examination, Assessment and Plan documented above with any addition or exceptions noted below. 32 yo female with long psychiatric history and recent 2 months ago ( following a complicated ) along with multiple social issues presents to ER for failed suicide attempt. Patient with attempted suicide by hanging. Per family and friends, threatened suicide throughout the day. After argument with boyfriend, locked herself in bathroom and attempting hanging on metal shower [place]. Male living in home acted quickly and cut patient down. Reports no loss of consciousness. Patient unsure of all events. Now reporting right-sided hemiparesis. Other risk factors include arguments with boyfriend and sister, anniversary of mother's , brother's recent suicide, father diagnosed with cancer, CPS involvement after delivery with loss of custody, recent delivery, history of MDD without treatment, and polysubstance abuse. Patient reports drug joyner this week after of brother. VS, labs, imaging reviewed. PE repeated and agree with above. During my exam patient noted to move right side with detracted. 1. Right sided weakness likely 2/2 conversion disorder: TIA/CVA workup negative. Noted to move right side on exam. Prior history. Will continue to monitor to rule out organic/pathological causes. Needs psych. 2. MDD with suicide attempt complicated by depression: Start SSRI ( use caution due to history of co-occurring bipolar disorder). No longer suicidal. [facility] evaluation once stable. Request sitter in room. SI precautions. Needs psych. 3. Social issues: Consult case management. 4. Polysubstance abuse: If consents, recommend inpatient rehab. [place]
[2018-03-14] MEDS ORDERED: Nicotine 7 MG PATCH TOP SCH (22:00)
[2018-03-15] MEDS ORDERED: Acetaminophen 325 MG TAB PO PRN (02:15)
--- NOTE | 2018-03-15 05:45 | PDOC.FM ---
- Subjective Subjective: Pt is resting in ED room and very withdrawn. She does not want to talk about the events that led to her arrival. She does state she is hungry. She reports improved strength and denies SI/HI. - Objective MAR Reviewed: Yes Result Diagrams: 03/14/18 17:35 03/15/18 03:31 Radiology Reviewed by me: Yes Phys Exam - Physical Examination Constitutional: NAD HEENT: moist MMs Respiratory: no wheezing, no rales, clear to auscultation bilateral Cardiovascular: RRR, no significant murmur Gastrointestinal: soft, non-tender, no distention, positive bowel sounds Musculoskeletal: no edema Neurological: moves all 4 limbs CN 2-12 intact, strength 5/5 in LUE, LLE, and RLE, 4/5 in RUE sensation intact in all 4 limbs Deviation from normal: withdrawn, flat affect, depressed mood, slowed speech. Dx/Plan (1) Conversion disorder Code(s): F44.9 - DISSOCIATIVE AND CONVERSION DISORDER, UNSPECIFIED Status: Acute (2) Suicide attempt Status: Acute (3) Polysubstance abuse Code(s): F19.10 - OTHER PSYCHOACTIVE SUBSTANCE ABUSE, UNCOMPLICATED Status: Acute (4) Depression Code(s): F32.9 - MAJOR DEPRESSIVE DISORDER, SINGLE EPISODE, UNSPECIFIED Status : Chronic (5) Bipolar 2 disorder Code(s): F31.81 - BIPOLAR II DISORDER Status: Chronic (6) Hypothyroid Code(s): E03.9 - HYPOTHYROIDISM, UNSPECIFIED Status: Chronic (7) Schizophrenia Code(s): F20.9 - SCHIZOPHRENIA, UNSPECIFIED Status: Chronic (8) Asthma Code(s): J45.909 - UNSPECIFIED ASTHMA, UNCOMPLICATED Status: Chronic (9) Acute kidney injury Code(s): N17.9 - ACUTE KIDNEY FAILURE, UNSPECIFIED Status: Acute - Plan Plan: Conversion Disorder 2/2 untreated depression Considering prompt negative stroke workup done in ER including normal CT brain and normal CTA head and neck, in the context of pts home stressors and low risk for stroke there is low suspicion for CVA. Likely conversion disorder. Pt's highest NIH score was 15, however, multiple ER staff witnessed the patient moving the right side of her body. Pt did report similar episode years ago that was also caused by emotional distress and resolved with calmed mental status. - neuro checks - consult MHMR - start mood stabilizer with hx of bipolar DO. Depression with suicide attempt Pt no longer having SI/HI/AVH, not on any medications currently for depression - start lamictal - Continue suicide precautions, MHMR consult pending Polysubstance abuse - UDS grossly positive. 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 MARIO - repeat BMP, could be 2/2 drug use Seizure disorder -home Keppra Schizophrenia and Bipolar 2 D/O - MHMR consult pending Asthma - home fluticasone hypothyroidism - TSH low, T4 pending - continue home levothyroxine FULL code disposition: observation, expecting less than 2 midnights Addendum - Attending - Attending Attestation Date/Time: 03/15/18 1111 I personally evaluated the patient and discussed the management with Dr. Love. I agree with the History, Examination, Assessment and Plan documented above with any addition or exceptions noted below. Neuro symptoms resolved, suspect related to conversion milieu of depression with suicidal attempt, schizophrenia/bipolar, drug abuse, acute grief regarding brother's , loss of child custody and conflict with significant other. Medically stable for MR evaluation and admission for inpatient treatment.
[2018-03-15 07:00] LABS: Anion Gap 14 mmol/L (10-20); BUN (Urea Nitrogen) 20 mg/dL (7.0-18.7); Calc. Creatinine Clearance 0 mL/min (70-130); Calcium 9.3 mg/dL (7.8-10.44); Carbon Dioxide 22 mmol/L (22-29); Chloride 108 mmol/L (98-107); Estimated GFR-MDRD 57; Glucose 89 mg/dL (70-105); Potassium 4.1 mmol/L (3.5-5.1); Sodium 140 mmol/L (136-145)
--- NOTE | 2018-03-15 08:39 | ER ---
DATE OF SERVICE: 03/14/2018 ADDENDUM: Please refer to the patient's electronic medical record for further details of her visit. In summary, the patient presented with reported strangulation by hanging. This was done in an attempt to harm herself as she was feeling very stressed and in an argument with her boyfriend. She denies any shortness of breath on my exam, her voice is not hoarse, breath sounds were initially clear bilaterally with pulses palpable in all extremities. She was noted to have right-sided fascial asymmetry and right-sided weakness on exam. She reported that this began around 10:30 or 11 o'clock last night. The patient was protecting her airways and did not require intubation on arrival. She was breathing comfortably and answering questions appropriately. She admitted suicidal ideation, but denied any attempts at self harm besides hang herself. Police reported the questionable period of time, during which the patient was alone in the bathroom, though it appears as this was a very brief duration. Reports from others on scene were that the patient did not lose consciousness, though the patient herself was unclear on this. Because of her right-sided facial asymmetry and right upper and lower extremity weakness, a stroke activation was called. Imaging revealed no evidence of acute thrombotic CVA. Of note, the patient was noted to move her right upper extremity spontaneously when she did not know she was being observed during her ER stay. Additionally, her facial symmetry was variable and changed rapidly, even while the patient was talking. I discussed the patient with Dr. Tonio García due to her elevated NIH score, though he agrees with my assessment, that the patient is not a good candidate for Angela therapy or thrombectomy. She is well outside the time window for thrombolytics. Additionally, her deficits improved throughout her ER stay, and there are some questions regarding the diagnosis of CVA. Still, she will require further evaluation and is not medically cleared for psychiatric evaluation and treatment. There is no evidence of vascular injury or neck hematoma on imaging. No other evidence of traumatic sequelae from her attempted hanging. The patient remained hemodynamically stable throughout her ER stay. She is not septic or toxic appearing, has not been sick recently. No emergent medical issues are apparent. She was evaluated by the family medicine service for admission. They are aware of her suicidality and the need for psychiatric evaluation and treatment once the patient has been medically cleared. Job ID: [id number] [facility]
[2018-03-15] MEDS ORDERED: Escitalopram Oxalate 10 mg Tablet PO SCH (09:00)
[2018-03-15] MEDS ORDERED: Aspirin Chewable 81 MG TAB ONE (10:38)
[2018-03-15] MEDS ORDERED: Enoxaparin Sodium 40 MG/0.4 ML SYRINGE ONE (10:38)
[2018-03-15] MEDS: Aspirin Chewable 81 MG TAB PO SCH (10:47)
[2018-03-15] MEDS: Enoxaparin Sodium 40 MG/0.4 ML SYRINGE SC SCH (10:47)
[2018-03-15] MEDS: levETIRAcetam 500 MG TAB PO SCH ×3 (10:48→20:05)
[2018-03-15] MEDS: lamoTRIgine 25 MG TAB PO SCH (10:48)
[2018-03-15] MEDS: Mometasone 200 MCG HFA INHALER INH SCH ×2 (14:45→18:10)
--- NOTE | 2018-03-15 15:03 | PDOC.EVN ---
Event Note - Event Note Event Note: Paged to ED for seizure like activity at around 1500. Nursing staff reports pt had full body shakes, nonresponsive, no LOC, normal vital signs, and complete resolution of seizure within 45 seconds without post-ictal state. Dr. Heard went to evaluate pt and reports normal VS, refusing to respond to questions but no lethargy or confusion. I went in and evaluated pt. Pt AOx3, conversing with family at bedside, only complaining of DWYER. After leaving the room, paged a second time by ED for similar situation around 1520. Nursing staff reports full body shakes and actually flipped over to her abdomen, lasting seconds with self resolution, no LOC, and no post-ictal state. No urinary or bowel incontinence, no tongue biting. Had HR increase to 110's that is now resolved. Likely these are pseudoseizures but with hx of seizure DO, will check keppra level and start seizure precautions. Will consider giving PO Keppra 1000mg dose after level has been achieved as pt reports previous noncompliance over the last few months with keppra.
[2018-03-15 15:50] VITALS: BMI 31.6
[2018-03-15] MEDS: Levothyroxine Sodium 25 MCG TAB PO SCH (15:58)
[2018-03-16] MEDS: Levothyroxine Sodium 25 MCG TAB PO SCH (05:55)
--- NOTE | 2018-03-16 06:13 | PDOC.FM ---
- Subjective Subjective: NAEO. Pt was able to complete all ADL's on her own per nursing staff. No seizures overnight. Pt is very upset this morning that [facility] recommended inpatient psych and reports "Yall don't know anything, that's going to make it worse. All I need is to see my kids." She reports active CPS case and believes they will permanently take her kids away if she is hospitalized at psych facility. She is so upset that she refuses to answer questions after the discussion of placement at [facility]. - Objective MAR Reviewed: Yes Vital Signs & Weight: Vital Signs (12 hours) Temp Pulse Resp BP Pulse Ox 03/16/18 04:00 98.5 F 60 18 111/75 97 03/16/18 00:00 98.3 F 76 18 105/59 L 96 03/15/18 20:00 98.6 F 89 20 111/68 96 03/15/18 18:10 62 12 92 L Weight Weight 80.921 kg I&O: 03/14/18 03/15/18 03/16/18 06:59 06:59 06:59 Intake Total 600 Balance 600 Result Diagrams: 03/14/18 17:35 03/15/18 03:31 Phys Exam - Physical Examination angry, would not allow physical exam, saying "don't touch me!" Deviation from normal: withdrawn, depressed mood Dx/Plan (1) Conversion disorder Code(s): F44.9 - DISSOCIATIVE AND CONVERSION DISORDER, UNSPECIFIED Status: Acute (2) Suicide attempt Status: Acute (3) Polysubstance abuse Code(s): F19.10 - OTHER PSYCHOACTIVE SUBSTANCE ABUSE, UNCOMPLICATED Status: Acute (4) Depression Code(s): F32.9 - MAJOR DEPRESSIVE DISORDER, SINGLE EPISODE, UNSPECIFIED Status : Chronic (5) Bipolar 2 disorder Code(s): F31.81 - BIPOLAR II DISORDER Status: Chronic (6) Hypothyroid Code(s): E03.9 - HYPOTHYROIDISM, UNSPECIFIED Status: Chronic (7) Schizophrenia Code(s): F20.9 - SCHIZOPHRENIA, UNSPECIFIED Status: Chronic (8) Asthma Code(s): J45.909 - UNSPECIFIED ASTHMA, UNCOMPLICATED Status: Chronic (9) Acute kidney injury Code(s): N17.9 - ACUTE KIDNEY FAILURE, UNSPECIFIED Status: Acute - Plan Plan: Conversion Disorder vs Factitious DO 2/2 untreated psych DO Considering prompt negative stroke workup done in ED including normal CT brain and normal CTA head and neck, and in the context of pts home stressors and low risk for stroke there is low suspicion for CVA. Likely conversion disorder vs factitious disorder. Pt's highest NIH score was 15, however, multiple ER staff witnessed the patient moving the right side of her body and has continued since. Pt did report similar episode years ago that was also caused by emotional distress and resolved with calmed mental status. - neuro checks - [facility] recommends inpatient psych, will dc today to [facility] - continue Lamictal 25mg with titration up in 2 weeks. Depression with suicide attempt Pt no longer having SI/HI/AVH, not on any medications currently for depression - started lamictal during this hospital stay - Continue suicide precautions, [facility] recommends inpatient psych. Polysubstance abuse - UDS grossly positive. Combine Mechanic cessation. MARIO - repeat BMP, could be 2/2 drug use Seizure disorder with recent psueudoseizure -Continue home Keppra dose -Keppra level within goal range -seizure precautions in place Schizophrenia and Bipolar 2 D/O - [facility] consult pending Asthma - home fluticasone hypothyroidism - TSH low, T4 wnl - continue home levothyroxine FULL code disposition: dc to [facility] today
[2018-03-16] MEDS: Mometasone 200 MCG HFA INHALER INH SCH (07:50)
[2018-03-16] MEDS: Aspirin Chewable 81 MG TAB PO SCH (08:40)
[2018-03-16] MEDS: levETIRAcetam 500 MG TAB PO SCH (08:41)
[2018-03-16] MEDS: Enoxaparin Sodium 40 MG/0.4 ML SYRINGE SC SCH (08:41)
[2018-03-16] MEDS: lamoTRIgine 25 MG TAB PO SCH (08:41)
[2018-03-16 11:45] VITALS: BP 99/67; TEMP 98.7
--- NOTE | 2018-03-17 09:32 | DIS ---
DATE OF ADMISSION: 03/14/2018 DATE OF DISCHARGE: 03/16/2018 ADMITTING ATTENDING: Dilcia Mantilla MD. DISCHARGE ATTENDING: Kurt Bolivar MD. RESIDENT: Eva Love DO. PROCEDURE/IMAGIN. CT [place] angiography with contrast, unremarkable. 2. Brain CT also on 03/14 which showed negative for acute intracranial findings. 3. Chest x-ray on 03/14 is with no acute findings. CONSULTS: None. PRIMARY DIAGNOSES: 1. Conversion disorder. 2. Suicide attempt. 3. Pseudoseizure. 4. Seizure disorder. 5. Acute kidney injury. 6. Bipolar II disorder. 7. Schizophrenia. 8. Hypothyroidism. 9. Asthma. 10. Polysubstance abuse. DISCHARGE MEDICATIONS: 1. vitamins 1 tab p.o. daily. 2. Flovent 110 mcg inhaled q.i.d. 3. Levothyroxine 25 mcg p.o. daily. 4. Keppra 500 mg p.o. t.i.d. 5. Lamictal 25 mg p.o. daily. Discontinued medications: None. HISTORY OF PRESENT ILLNESS/HOSPITAL COURSE: The patient is a 32-year-old female who presented with a chief complaint of complete right upper and lower extremity weakness. Reported additional facial droop and slurred speech that lasted all night after an argument ensued with her boyfriend. After which she became very depressed and was able to walk into the bathroom where she attempted to hang herself with a shower curtain. Boyfriend called EMS and she was brought to the ED. On admission, she reports the anniversary of her mother's and brother recently committing suicide as well as her kids being in custody of CPS, all stressors in her environment. On admission, despite having elevated an NIH score and exam consistent with the reported symptoms, the patient was seen quite often using right extremities. Workup for acute CVA was negative with negative imaging of the CT head and neck. The next day, strength returned to normal. The patient having normal conversations with staff and family members. Of note, has history of seizure disorder and reported poor compliance over the last week or 2. She was restarted on her home Keppra, but on the same day did have a seizure which appeared to be pseudoseizure in nature with no loss of consciousness, biting the tongue, loss of bowel or bladder and no postictal periods. This happened on two separate occasions and was witnessed by nursing staff. A Keppra level was drawn and she was in the therapeutic range when we took her level. Keppra was continued and seizure precautions were in place. As mentioned above these appeared to be pseudoseizures. She did have a mild MARIO with BUN of 20 and a creatinine of 1.32 above her baseline which is creatinine of 0.8 or 0.9, this should be followed outpatient and is likely secondary to drug use versus dehydration. Her thyroid was checked and we found her TSH to be low at 0.2618 with a normal free T4 of 1.01. Fasting lipid panel was within normal limits. test was negative. Due to complete resolution of her neurologic symptoms and seizures being pseudo in nature, the patient was medically cleared for [facility] evaluation. [facility] evaluated the patient and deemed her inpatient appropriate and the patient has a bed at [facility]. Of note, in regard to her untreated previous psych history, she was started on Lamictal 25 mg daily with the thought of titrating up in two weeks; although, [facility] may need to make different medication changes after discharge. Urine tox screen was positive for PCP, amphetamines, methamphetamines, cocaine, and cannabinoids with a plasma alcohol negative and negative Tylenol and salicylate screen. DISPOSITION: Stable. DISCHARGE INSTRUCTIONS: 1. Location: [facility]. 2. Diet, regular. 3. Activity, as tolerated. 4. Follow up with primary care physician after discharge from [facility] and MR after discharge from [facility]. Job ID: [id number] [facility]
== END 2018-03-16 13:01 ==
LOC: ERS 17:31 → ERHOLD 18:50 → 2SE 03-15 14:32
PROVIDERS: ADMIT Student in an Organized Health Care Education/Training Program; ATTEND Student in an Organized Health Care Education/Training Program
DX: F44.9 Dissociative and conversion disorder, unspecified (principal); F31.81 Bipolar II disorder; F20.9 Schizophrenia, unspecified; J45.909 Unspecified asthma, uncomplicated; E03.9 Hypothyroidism, unspecified; G43.909 Migraine, unspecified, not intractable, without status migrainosus; G40.909 Epilepsy, unspecified, not intractable, without status epilepticus; F17.210 Nicotine dependence, cigarettes, uncomplicated; F12.10 Cannabis abuse, uncomplicated; F16.10 Hallucinogen abuse, uncomplicated; N17.9 Acute kidney failure, unspecified; Z91.5 Personal history of self-harm; Z88.2 Allergy status to sulfonamides; Z88.8 Allergy status to other drugs, medicaments and biological substances; Z91.018 Allergy to other foods; Z79.51 Long term (current) use of inhaled steroids; Z79.899 Other long term (current) drug therapy
CPT/HCPCS: 36415; 36416; 51701; 70450; 70496; 70498; 71045; 80048; 80053; 80061; 80177; 80306; 80307; 81003; 81015; 82550; 83605; 84439; 84443; 84484; 84703; 85025; 85610; 85730; 90471; 90686; 90732; 93005; 96372; A4353; G0008; G0009; G0378; J1650; Q9966

== ENCOUNTER 2018-11-19 12:35 | Emergency (ER) | payer OTHER ==
[2018-11-19] MEDS ORDERED: Ketorolac Tromethamine 30 MG/ML VIAL ONE (13:00)
[2018-11-19] MEDS ORDERED: levETIRAcetam 500 MG TAB PO SCH (13:15)
[2018-11-19 13:22] LABS: #Eosinphils 0.2 thou/uL (0.0-0.7); #Lymphocytes 1.4 thou/uL (1.20-3.40); #Monocytes 0.6 thou/uL (0.11-0.59); #Neutrophils 5.2 thou/uL (1.40-6.50); %Basophils 0.3 % (0.0-1.0); %Eosinophils 2.2 % (0.0-10.0); %Lymphocytes 19.1 % (21.0-51.0); %Monocytes 7.8 % (0.0-10.0); %Neutrophils 70.6 % (42.0-75.0); Hemoglobin 15.5 g/dL (12.0-16.0); Mean Corpuscular HGB CONC 33.1 g/dL (32.0-36.0); Mean Corpuscular Volume 84.7 fL (78.0-98.0); Mean Platelet Volume 7.4 fL (7.4-10.4); Platelet Count 215 thou/uL (130-400); RBC Distribution Width 13.2 % (11.5-14.5); Red Blood Cell (RBC) Count 5.54 mill/uL (4.20-5.40); White Blood Cell (WBC) Count 7.4 thou/uL (4.8-10.8)
[2018-11-19 13:43] LABS: BHCG - Serum Negative (NEGATIVE); Pregs Control Background? CLEAR/WHITE (CLR/WHITE); Pregs Control Bar Appear? YES (CONTROL BAR)
[2018-11-19 13:47] LABS: ALT (SGPT) 23 U/L (8-55); AST (SGOT) 30 U/L (5-34); Albumin 4.4 g/dL (3.5-5.0); Alkaline Phosphatase 59 U/L (40-110); Anion Gap 16 mmol/L (10-20); BUN (Urea Nitrogen) 12 mg/dL (7.0-18.7); Bilirubin, Total 0.4 mg/dL (0.2-1.2); Calc. Creatinine Clearance 0 mL/min (70-130); Calcium 10.1 mg/dL (7.8-10.44); Carbon Dioxide 22 mmol/L (22-29); Chloride 105 mmol/L (98-107); Estimated GFR-MDRD 82; Globulin 3.1 g/dL (2.4-3.5); Glucose 83 mg/dL (70-105); Potassium 4.5 mmol/L (3.5-5.1); Protein, Total 7.5 g/dL (6.0-8.3); Sodium 138 mmol/L (136-145)
--- NOTE | 2018-11-19 14:16 | RAD ---
Right shoulder 3 views HISTORY: Fall. Shoulder injury. FINDINGS: Acromioclavicular and glenohumeral alignment are maintained. Mild osteophytosis. No acute f racture, dislocation, or aggressive osseous erosions. IMPRESSION: No acute osseous abnormalities are demonstrated.
--- NOTE | 2018-11-19 14:17 | RAD ---
Left shoulder 3 views HISTORY: Fall. Shoulder injury. FINDINGS: Acromioclavicular and glenohumeral alignment are maintained. No acute fracture or dislocati on. IMPRESSION: No acute osseous abnormalities are demonstrated.
--- NOTE | 2018-11-19 15:01 | CT ---
CT head noncontrast HISTORY: Head injury. COMPARISON: 03/14/2018. FINDINGS: There is no evidence of acute intracranial hemorrhage or infarct. The ventricles appear nor mal in size, shape and position. There is no mass effect or shift of midline structures. Visualized paranasal sinuses remain well aerated. IMPRESSION: No acute intracranial abnormalities are demonstrated.
== END 2018-11-19 15:25 ==
LOC: ERS 12:35
DX: S00.03XA Contusion of scalp, initial encounter (principal); J45.909 Unspecified asthma, uncomplicated; E03.9 Hypothyroidism, unspecified; F41.9 Anxiety disorder, unspecified; F31.9 Bipolar disorder, unspecified; F20.9 Schizophrenia, unspecified; D64.9 Anemia, unspecified; Z79.899 Other long term (current) drug therapy; W22.8XXA Striking against or struck by other objects, initial encounter
CPT/HCPCS: 70450; 80053; 84703; 85025; 96374; J1885

== ENCOUNTER 2021-06-24 18:21 | Emergency (ER) | payer OTHER | END 2021-06-24 18:47 | LOC: ERS 18:21 | DX: R45.1 Restlessness and agitation (principal); F12.10 Cannabis abuse, uncomplicated | CPT/HCPCS: 99284 ==

== ENCOUNTER 2021-08-09 14:36 | Emergency (ER) | payer OTHER ==
[2021-08-09 16:16] LABS: #Eosinphils 0.1 thou/uL (0.0-0.7); #Lymphocytes 1.4 thou/uL (1.20-3.40); #Monocytes 0.5 thou/uL (0.11-0.59); #Neutrophils 3.8 thou/uL (1.40-6.50); %Basophils 0.5 % (0.0-1.0); %Eosinophils 2.2 % (0.0-10.0); %Lymphocytes 23.1 % (21.0-51.0); %Monocytes 8.8 % (0.0-10.0); %Neutrophils 65.4 % (42.0-75.0); Hemoglobin 13.8 g/dL (12.0-16.0); Mean Corpuscular HGB CONC 33.2 g/dL (32.0-36.0); Mean Corpuscular Hemoglobin 30.8 pg (27.0-31.0); Mean Corpuscular Volume 92.9 fL (78.0-98.0); Mean Platelet Volume 6.8 fL (7.4-10.4); Platelet Count 181 thou/uL (130-400); RBC Distribution Width 12.1 % (11.5-14.5); Red Blood Cell (RBC) Count 4.49 mill/uL (4.20-5.40); White Blood Cell (WBC) Count 5.8 thou/uL (4.8-10.8)
[2021-08-09 16:34] LABS: ALT (SGPT) 60 U/L (8-55); AST (SGOT) 68 U/L (5-34); Albumin 3.5 g/dL (3.5-5.0); Alkaline Phosphatase 66 U/L (40-110); Anion Gap 11 mmol/L (10-20); BUN (Urea Nitrogen) 16 mg/dL (7.0-18.7); Bilirubin, Total 0.7 mg/dL (0.2-1.2); Calc. Creatinine Clearance 0 mL/min (70-130); Calcium 8.6 mg/dL (7.8-10.44); Carbon Dioxide 22 mmol/L (22-29); Chloride 109 mmol/L (98-107); Globulin 2.5 g/dL (2.4-3.5); Glucose 84 mg/dL (70-105); Sodium 138 mmol/L (136-145)
[2021-08-09 16:48] LABS: BHCG - Serum Negative (NEGATIVE); Pregs Control Background? CLEAR/WHITE (CLR/WHITE); Pregs Control Bar Appear? YES (CONTROL BAR)
[2021-08-09] MEDS ORDERED: Ketorolac Tromethamine 30 MG/ML VIAL ONE (18:15)
[2021-08-09] MEDS ORDERED: Morphine 4 MG/ML VIAL ONE (18:15)
[2021-08-09] MEDS ORDERED: Ondansetron PF 4 MG/2 ML Vial ONE (18:15)
== END 2021-08-09 20:15 | disposition home or self-care (01) ==
LOC: ERS 14:36
DX: S06.0X9A Concussion with loss of consciousness of unspecified duration, initial encounter (principal); S46.011A Strain of muscle(s) and tendon(s) of the rotator cuff of right shoulder, initial encounter; S30.1XXA Contusion of abdominal wall, initial encounter; E11.9 Type 2 diabetes mellitus without complications; E03.9 Hypothyroidism, unspecified; J45.909 Unspecified asthma, uncomplicated; Z79.899 Other long term (current) drug therapy; Y04.8XXA Assault by other bodily force, initial encounter
CPT/HCPCS: 36415; 70450; 70486; 71045; 71260; 74177; 80053; 84703; 85025; 96361; 96374; 96375; J1885; J2270; J2405; Q9966